=== PATIENT | male | born 1970 | race Two or more races ===

== ENCOUNTER 2017-07-30 06:15 | Emergency (ER) | payer MEDICAID ==
[~2017-07-30] VITALS: Ht 170.2 cm; Wt 86.2 kg
[2017-07-30 06:29] VITALS: BP 143/98
[2017-07-30] MEDS ORDERED: FLUORESCEIN SOD 1 MG TEST STRIP RIGHTEYE ONE (08:00)
[2017-07-30] MEDS ORDERED: TETRACAINE HCL 0.5% OPTH(EYE) SOLN 4ML RIGHTEYE ONE (08:00)
== END 2017-07-30 08:41 | disposition home or self-care (01) ==
LOC: ER 06:18
DX: H57.11 Ocular pain, right eye (principal); T78.40XA Allergy, unspecified, initial encounter; Z90.49 Acquired absence of other specified parts of digestive tract; X58.XXXA Exposure to other specified factors, initial encounter

== ENCOUNTER 2019-03-02 10:36 | Emergency (ER) | payer MEDICAID ==
[~2019-03-02] VITALS: Ht 172.7 cm; Wt 93.0 kg
[2019-03-02 10:47] VITALS: BP 162/99
[2019-03-02 11:17] LABS: Urine Bacteria NONE SEEN /hpf (None Seen); Urine Blood Negative /uL (Negative); Urine Specific Gravity 1.018 (1.001-1.035); Urine WBC 1 /hpf (0 - 3)
[2019-03-02] MEDS ORDERED: KETOROLAC TROMETH 60MG/2ML VIAL IM ONE (12:30)
== END 2019-03-02 12:57 | disposition home or self-care (01) ==
LOC: ER 10:41
DX: N20.0 Calculus of kidney (principal); Z90.49 Acquired absence of other specified parts of digestive tract
CPT/HCPCS: 74176; 81001; 96372; 99284; J1885

== ENCOUNTER 2025-02-10 03:44 | Emergency (ER) | payer SELFPAY ==
[~2025-02-10] VITALS: Ht 170.2 cm; Wt 103.5 kg
[2025-02-10 03:46] VITALS: BP 184/104; PULSE 85; RESP 20; TEMP 98.7; O2SAT 98
[2025-02-10] MEDS ORDERED: PROM1SOL4 PO (04:05)
[2025-02-10] MEDS ORDERED: AZIT500T66 PO (04:05)
[2025-02-10] MEDS ORDERED: ALBU108A5 IN (04:05)
--- NOTE | 2025-02-10 04:11 | ED.PDOC ---
History of Present Illness HPI Comments 54 y/o M presents with c/c nonproductive cough. Patient endorses on having excessive coughing for 5x days. Notable history of truck operator occupation and, recently, returning from a trip. Denial of any chest pain, shortness of breath, or further associated symptoms. Chief Complaint: Cough Time Seen by MD: 04:00 Primary Care Provider: Dr Landon Somers Reviewed Notes: Nurses Notes, Medications, Allergies Allergies: Coded Allergies: NO KNOWN ALLERGIES (Unverified , 07/30/17) Home Meds Active Scripts Promethazine-Dm (Promethazine Dm 6.25-15 mg/5Ml) 1 Wanda Wanda, 5 ML PO Q6HP PRN, #60 ML Prov:JOSE MARIA RAZA MD 02/10/25 Azithromycin (Azithromycin) 500 Mg Tab, 1 TAB PO DAILY, #5 TAB Prov:JOSE MARIA RAZA MD 02/10/25 Albuterol Sulfate (Albuterol Sulfate Hfa) 108 Mcg/Act Aer, 108 MCG IN Q6HP PRN, #1 AER Prov:JOSE MARIA RAZA MD 02/10/25 Information Source: Patient Mode of Arrival: Ambulatory Past Medical History PAST MEDICAL HISTORY: Thyroid Surgical History: Cholecystectomy, Hernia Repair Family History Family History: Reviewed,noncontributory to illness Social History Smoker: Non-Smoker Alcohol: Denies ETOH Use Drugs: Denies Drug Use Lives In: Home All Other Systems: Reviewed and Negative (as per HPI) Physical Exam General Appearance: No Apparent Distress, Obese HEENT: Normal ENT Inspection, Pharynx Normal, TMs Normal, Other (nasal co ngestion ) Neck: Full Range of Motion, Non-Tender, Normal, Normal Inspection Respiratory: Chest Non-Tender, Lungs Clear, No Accessory Muscle Use, No Respiratory Distress, Normal Breath Sounds Cardiovascular: No Edema, No JVD, No Murmur, No Gallop, Normal Peripheral Pulses, Regular Rate/Rhythm Breast Exam: Deferred Gastrointestinal: No Organomegaly, Non Tender, No Pulsatile Mass, Normal Bowel Sounds, Soft Genitalia: Deferred Pelvic: Deferred Rectal: Deferred Extremities: No calf tenderness, Normal capillary refill, Normal inspection, Normal range of motion, Non-tender, No pedal edema Musculoskeletal : Apperance: Normal Neurologic: Alert, baby formula worker II-XII nml as Tested, No Motor Deficits, Normal Affect, Normal Mood, No Sensory Deficits Cerebellar Function: Normal Reflexes: Normal Skin: Dry, Normal Color, Warm Lymphatic: No Adenopathy Was a procedure done? Was a procedure done?: No Differential Dx Considerations may include: URI, viral syndrome, PNA, among others X-Ray, Labs, Meds, VS Vital Signs Date Time Temp Pulse Resp B/P (MAP) Pulse Ox O2 Delivery O2 Flow Rate FiO2 02/10/25 03:46 20 98 Room Air* 0 21 02/10/25 03:46 98.7 85 20 184/104 98 98.7 Time of 1ST Reevaluation: 04:30 Reevaluation 1ST: Unchanged Patient Education/Counseling: Diagnosis, Treatment Family Education/Counseling: No Family Present SEPSIS Sepsis Screen Date sepsis recognized/suspect: Feb 10, 2025 Time Sepsis recognized/suspect: 349 Recent Procedure: No On Antibiotic Therapy: No Respiratory Rate >20: No Heart Rate >90: No Temp<36 C (96.8 F) or >38.3 C: No SBP <90 or MAP <65 mmHG: No New Acute Mental Status Change: No Is the patient on CPAP, BIPAP,: No Physician Orders Albuterol Inhaler (Ventolin Hfa) (02/10/25 06:00) Vital Signs Date Time Temp Pulse Resp B/P (MAP) Pulse Ox O2 Delivery O2 Flow Rate FiO2 02/10/25 03:46 20 98 Room Air* 0 21 02/10/25 03:46 98.7 85 20 184/104 98 98.7 Departure 1 Departure Time of Disposition: 05:00 Impression: Primary Impression: Cough Disposition: HOME / SELF CARE / HOMELESS Condition: Stable Additional Instructions: Follow up with your primary physician Return to the Emergency Department for any worsening symptoms or concerns e-Prescriptions Promethazine-Dm (Promethazine Dm 6.25-15 mg/5Ml) 1 Wanda Wanda 5 ML PO Q6HP PRN, #60 ML Prov: JOSE MARIA RAZA MD 02/10/25 Azithromycin (Azithromycin) 500 Mg Tab 1 TAB PO DAILY, #5 TAB Prov: JOSE MARIA RAZA MD 02/10/25 Albuterol Sulfate (Albuterol Sulfate Hfa) 108 Mcg/Act Aer 108 MCG IN Q6HP PRN, #1 AER Prov: JOSE MARIA RAZA MD 02/10/25 Discharged With: Self Critical Care Note Critical Care Time?: No Stability Stability form required: No Heart Score Heart Score: Heart Score Response (Comments) Value History N/A 0 EKG N/A 0 Age N/A 0 Risk Factors N/A 0 Troponin N/A 0 Total 0 I personally scribed for JOSE MARIA RAZA MD ([email or web address]) on 02/10/25 at 04:11. E lectronically submitted by Tommy Rogers [email or web address]). JOSE MARIA RAZA MD Feb 10, 2025 04:11
[2025-02-10] MEDS: AZITHROMYCIN 250 MG TAB PO ONE (04:15)
[2025-02-10] MEDS: ALBUTEROL SULF HFA 90MCG INH 200DOSE IN SCH (05:44)
== END 2025-02-10 05:44 | disposition home or self-care (01) ==
LOC: ER 03:44
DX: R05.9 Cough, unspecified (principal); Z98.890 Other specified postprocedural states; Z90.49 Acquired absence of other specified parts of digestive tract; Z79.899 Other long term (current) drug therapy